=== PATIENT | female | born 1995 | race American Indian/Alaskan Native ===

== ENCOUNTER 2021-02-08 05:29 | Inpatient (IN) | payer MEDICAID ==
--- NOTE | 2021-02-06 14:37 | History and Physical Report ---
History of Present Illness Date of examination: 02/02/21 Chief complaint: Primary section due fourht degree laceration x2 for six pound infants at [place] and shoulder dystocia with her previous pregnancies History of present illness: Past History : 3 Term Births: 2 Premature Births: 0 Living Children: 2 Para: 2 Mult. Births: 0 Prev : 0 Prev. attempt? none Aborta: 0 Elect. Ab: 0 Spont. Ab: 0 Ectopics: 0 # 1 Delivery date: 2014 Weeks Gestation: 39 labor: no Delivery type: Anesthesia type: none Delivery location: [place] weight: 6lbs Comments: 4th degree # 2 Delivery date: 2018 Weeks Gestation: 39 labor: no Delivery type: Anesthesia type: none Delivery location: [place] Sex: Male weight: 6lbs Comments: shoulder dystocia and 4th degree Risk Factors: Smoked Tobacco Use: Never smoker Smokeless Tobacco Use: Never Passive smoke exposure: no Drug use: no HIV high-risk behavior: no Alcohol use: no Exercise: yes Times per week: 2 Type of Exercise: wallking Seatbelt use: 100 % Past Medical History: 4th degree x2, shoulder dystocia with last delivery Sickle cell trait Past Surgical History: Negative Past Surgical History Past Medical History 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 of genital herpes: no Partner hx. of genital herpes: no Rash, Viral, or Febrile illness since last LMP? no Varicella/Chicken Pox Status: Immunized Genetic History Congenital Heart Defect: Mom: no Dad: no Olga Disease: Mom: no Dad: no Thalassemia Mom: no Dad: no Neural Tube Defect Mom: no Dad: no Down's Syndrome Mom: no Dad: no Ventura-Sachs Mom: no Dad: no Sickle Cell Disease/Trait Mom: yes Dad: no Comments: pt is +SCT Hemophilia Mom: no Dad: no Muscular Dystrophy Mom: no Dad: no Cystic Fibrosis Mom: no Dad: no Macario Chorea Mom: no Dad: no Mental Retardation Mom: no Dad: no Fragile X Mom: no Dad: no Other Genetic/Chromosomal Disorder Mom: no Dad: no Child w/other defect Mom: no Dad: no Enviromental Exposures Xray Exposure: no Medication, drug, or alcohol use since LMP: no Chemical/Other Exposure: no Exposure to Cat Liter: no Hx of Parvovirus (Fifth Disease): no Occupational Exposure to Children: none Current Allergies (reviewed today): No known allergies Physical Exam Fundal Ht: 40 Size: AGA Position: vertex FHT: 130s Activity: + Initials: lr Physical Exam General appearance: well nourished, healthy appearing, no distress Chest/Lungs: respiratory effort normal, lungs clear to auscultation Cardiovascular: normal rate and rhythm Abdomen/GI: soft, nontender Cervix: Dilation (cm): 0 Effacement: 40% Station: -3 Position: posterior Consistency: soft Care Plan: Shoulder dystocia - delivered (ICD-660.41) (DWL11-S33.0) Impression & Recommendations: Problem # 1: Shoulder dystocia - delivered (ICD-660.41) (TWU67-G73.0) Orders: OB follow up (CPT-60445) Urine Chemstrip (CPT-24645) Options again reviewed with risk for repeat shoulder dystocia and 4th degree episiotomy/laceration and complications. C/S exlpianed and risks discussed, including but not limited to, possible bleeding, infection, injury to bowel, bladder, ureters or other adjacent organs. She was informend she may require c/s's for all subsequent pregnancies: The patient was instructed/informed the following: The normal length of hospital stay for this procedure. Nothing to eat or drink after midnight the evening prior to surgery. The usual discomforts associated with this procedure were detailed. Proper use of pain medicines was reviewed. Patient was given ample opportunity to have all her questions answered before signing informed consent. She voiced understanding and desires to proceed with delivery. he declines sterilization at this time. Questions encouraged and answered. Consents reviewed and sign. Problem # 2: Obstetric perineal laceration, 4th degre (ICD-664.30) (ICD10- O70.3) Past History - Obstetrical History Expected Date of Delivery: 02/10/21 Actual Gestation: 39 Week(s) 3 Day(s) Medications and Allergies Active Meds: Active Medications Citric Acid/Sodium Citrate (Bicitra Oral Liqd 30ml) 30 ml PO ONCE ONE Stop: 02/08/21 07:01 Famotidine (Famotidine 20 Mg/2 Ml Inj) 20 mg IV ONCE ONE Stop: 02/08/21 07:01 Lactated Ringer's (Lactated Ringers) 1,000 mls @ 2,250 mls/hr IV PREOP TOMMY Stop: 02/09/21 05:57 Oxytocin/Sodium Chloride (Pitocin/Ns 30 Unit/500ml) 30 units in 500 mls @ 0 mls/hr IV TITR TOMMY; Protocol Cefazolin Sodium (Ancef/Sterile Water 2 Gm/20 Ml) 2 gm in 20 mls @ 80 mls/hr IV PREOP NR; Protocol Metoclopramide HCl (Metoclopramide 10 Mg/2 Ml Inj) 10 mg IV ONCE ONE Stop: 02/08/21 07:01 Review of Systems All systems: negative Results All other labs normal. Assessment and Plan - Patient Problems (1) 39 weeks gestation of Status: Acute (2) History of fourth degree perineal laceration Status: Acute (3) Sickle cell trait Status: Chronic (4) History of shoulder dystocia in prior Status: Acute
[2021-02-08] MEDS ORDERED: OXYTOCIN DRIP 30 UNITS/500 ML BAG IV SCH ×2 (05:30→12:00)
[2021-02-08] MEDS: LACTATED RINGERS 1,000 ML IV SCH ×2 (06:10→07:05)
--- NOTE | 2021-02-08 06:15 | Anesthesia Day of Surgery ---
Anesthesia Day of Surgery - Day of Surgery Patient Examined: Yes Patient H&P Reviewed: Yes Patient is NPO: Yes Beta Blockers: No Cardiac Clearance: No Pulmonary Clearance: No Selvin's Test: N/A
--- NOTE | 2021-02-08 06:29 | Anesthesia Consultation ---
Anesthesia Consult and Med Hx Date of service: 02/08/21 - Airway Anesthetic Teeth Evaluation: Good ROM Head & Neck: Adequate Mental/Hyoid Distance: Adequate Mallampati Class: Class II Intubation Access Assessment: Good - Pulmonary Exam CTA: Yes - Cardiac Exam Cardiac Exam: RRR - Pre-Operative Health Status ASA Pre-Surgery Classification: ASA2 Proposed Anesthetic Plan: Spinal - Pulmonary Hx Smoking: No Hx Asthma: No Hx Respiratory Symptoms: No SOB: No COPD: No Home Oxygen Therapy: No Hx Pneumonia: No Hx Sleep Apnea: No - Cardiovascular System Hx Hypertension: No Hx Coronary Artery Disease: No Hx Heart Attack/AMI: No Hx Angina: No Hx Percutaneous Transluminal Coronary Angioplasty (PTCA): No Hx Cardia Arrhythmia: No Hx Pacemaker: No Hx Internal Defibrillator: No Hx Valvular Heart Disease: No Hx Heart Murmur: No - Central Nervous System Hx Neuromuscular Disorder: No Hx Seizures: No CVA: No Hx Back Pain: No Hx Psychiatric Problems: No - Gastrointestinal Hx Ulcer: No Hx Gastroesophageal Reflux Disease: Yes - Endocrine Hx Renal Disease: No Hx End Stage Renal Disease: No Hx Cirrhosis: No Hx Liver Disease: No Hx Insulin Dependent Diabetes: No Hx Non-Insulin Dependent Diabetes: No Hx Thyroid Disease: No Hx Hypothyroidism: No Hx Hyperthyroidism: No - Hematic Hx Anemia: No Hx Sickle Cell Disease: No - Other Systems Hx Alcohol Use: No Hx Substance Use: No Hx Cancer: No Hx Obesity: Yes
[2021-02-08 06:41] LABS: Hemoglobin 8.4 gm/dl (10.1-14.3); Mean Corpuscular HGB Conc 32 % (30-34); Platelet Count 203 K/mm3 (140-440); Red Blood Count 3.81 M/mm3 (3.65-5.03)
[2021-02-08 06:42] LABS: Mean Corpuscular Volume 68 fl (79-97); Red Cell Distribution Width 20.2 % (13.2-15.2)
[2021-02-08] MEDS ORDERED: NALOXONE 0.4 MG/1 ML INJ IV PRN ×2 (06:44→12:00)
[2021-02-08] MEDS ORDERED: HYDROmorphone 1 MG/1 ML INJ IV PRN (06:44)
[2021-02-08] MEDS ORDERED: ONDANSETRON 4 MG/2 ML INJ IV PRN (06:44)
[2021-02-08] MEDS ORDERED: BICITRA ORAL LIQD 30ML PO ONE (07:00)
[2021-02-08] MEDS ORDERED: ceFAZolin/Water 2 GM/20 ML 2 GM/20 ML SYRINGE IV NR (07:00)
[2021-02-08] MEDS ORDERED: METOCLOPRAMIDE 10 MG/2 ML INJ IV ONE (07:00)
[2021-02-08] MEDS ORDERED: FAMOTIDINE 20 MG/2 ML INJ IV ONE (07:00)
[2021-02-08] MEDS ORDERED: ONDANSETRON 4 MG/2 ML INJ ONE ×2 (07:39)
[2021-02-08] MEDS ORDERED: BUPIVACAINE/PF (0.5%) 5 MG/1 ML 30 ML VIAL INFILTRATI ONE (07:39)
[2021-02-08] MEDS ORDERED: dexAMETHasone 20 MG/5 ML VIAL ONE (07:39)
[2021-02-08] MEDS ORDERED: WATER FOR IRRIG STERILE 1,500 ML BOTTLE IR ONE (08:00)
[2021-02-08] MEDS ORDERED: ceFAZolin/STERILE WATER 2 GM/20 ML SYRINGE IV ONE (08:00)
[2021-02-08] MEDS ORDERED: SODIUM CHLORIDE 0.9% IRR 1,500 ML BOTTLE IR ONE (08:00)
[2021-02-08] MEDS ORDERED: PHENYLEPHRINE/NS 1,000 MCG/10 ML SYRINGE (OR USE) IV ONE (08:02)
[2021-02-08] MEDS ORDERED: KETOROLAC 30 MG/1 ML INJ ONE (08:27)
[2021-02-08] MEDS ORDERED: SODIUM CHLORIDE 0.9% 100 ML ONE (08:44)
--- NOTE | 2021-02-08 09:10 | Operative Report ---
Operative Report Operative Report: Date of operation: 02/08/2021 Pre-operative diagnosis: 1. 39 weeks gestational age 2. History of shoulder dystocia and fourth degree lacerations 3. Desires primary delivery 4. BMI 34.3 mg/m 5. Anemia Post-operative diagnosis: 1. 39 weeks gestational age 2. History of shoulder dystocia and fourth degree lacerations 3. Desires primary delivery 4. BMI 34.3 mg/m 5. Anemia Procedure name(s): Primary low transverse uterine incision Surgeon: Kavya Gao MD Non [employer]fit Job Titles: Ashely Montano CST Anesthesia: Combined spinal epidural EBL: 900 mL Urine output: 150 mL of clear urine out at the end of the procedure Fluids: 1300 mL Findings: Liveborn male weight 8 Lbs. 8.6 oz. Apgars of 8 and 9 at one and 5 minutes Indications: Pregnancies complicated by fourth degree laceration while delivering a 6 pound infant followed by shoulder dystocia and another fourth degree laceration again delivery of a 6 pound infant. Procedure: Patient was taking to the operating room. Spinal epidural anesthesia was placed. Patient was then prepped and draped in the usual sterile fashion Timeout was performed. Once an appropriate level of anesthesia was noted, a Pfannenstiel incision was made and extended the fascia which was incised and extended lateral direction. The overlying fascia was sharply dissected away from the underlying rectus muscles in the superior inferior direction. The midline was entered bluntly. Bladder blade was placed. Vesicouterine fold was incised with blunt dissection bladder flap was created. A transverse incision was made in the lower uterine segment and extended superolateral direction with finger fractionation. [] fluid was noted. was delivered from the [] position, with spontaneous cry and excellent tone. Mouth and nose bulb suctioned. Cord was doubly clamped and cut infant was given to the resuscitation team present. Placenta was delivered. The uterus was exteriorized and cleaned of any further placental tissue and products of conception. Uterine incision was approximated using 0 Vicryl in a running interlocking stitch followed by further suture of 0 Vicryl in imbricating fashion. When hemostasis was noted the uterus was allowed back in the pelvic cavity. Pelvis was irrigated with warm normal saline. Surgicel was placed to ensure hemostasis. Once hemostasis was noted the rectus muscles were approximated using 0 Vicryl interrupted simple stitches 3. Once hemostasis was noted the fascia was approximated using 0 Vicryl simple running stitch. The incision was irrigated with warm saline, once hemostasis as noted, the subcuticular adipose tissue was reapproximated using 3-0 Vicryl in a simple running fashion. Skin was approximated using 4-0 Vicryl on a Chidi needle in a subcuticular manner. Counts were correct x3. Patient tolerated the procedure well, she was taken to recovery room in stable condition.
--- NOTE | 2021-02-08 10:53 | Progress Note ---
Spinal Anesthesia Block - Spinal Anesthesia Block Start Time: 07:50 Stop Time: 07:56 Performed by:: ROSEANNE FISHMAN Procedure: Patient IDed, H&P reviewed, all questions and concerns were answered, and consent was signed. Timeout was performed at bedside. Patient in sitting position. Sterile prep and drape was performed. [3] ml of 1% lidocaine skin wheal at L[3]- L [4]. Needle introducer advanced. 25 gauge spinal needle advanced. Clear, free flowing CSF. negative blood, negative paresthesia. Spinal dose given. All needles removed. Patient tolerated procedure.
--- NOTE | 2021-02-08 10:55 | Progress Note ---
Objective - Constitutional Vitals: Vital Signs - 12hr 02/08/21 02/08/21 02/08/21 05:51 05:56 06:01 Temperature Pulse Rate 85 100 H 87 Respiratory Rate Blood Pressure 136/73 O2 Sat by Pulse 100 100 99 Oximetry 02/08/21 02/08/21 02/08/21 06:06 06:11 06:16 Temperature Pulse Rate 95 H 80 88 Respiratory Rate Blood Pressure O2 Sat by Pulse 100 100 100 Oximetry 02/08/21 02/08/21 02/08/21 06:21 06:26 06:31 Temperature Pulse Rate 79 104 H 95 H Respiratory Rate Blood Pressure O2 Sat by Pulse 100 100 100 Oximetry 02/08/21 02/08/21 02/08/21 06:34 06:48 06:53 Temperature Pulse Rate 132 H 94 H 84 Respiratory Rate Blood Pressure O2 Sat by Pulse 84 100 100 Oximetry 02/08/21 02/08/21 02/08/21 06:58 07:03 07:08 Temperature Pulse Rate 93 H 76 82 Respiratory Rate Blood Pressure O2 Sat by Pulse 100 100 100 Oximetry 02/08/21 02/08/21 02/08/21 07:13 07:18 07:23 Temperature Pulse Rate 76 104 H 82 Respiratory Rate Blood Pressure O2 Sat by Pulse 100 100 100 Oximetry 02/08/21 02/08/21 02/08/21 07:28 07:33 09:08 Temperature 97.5 F L Pulse Rate 68 86 90 Respiratory 13 Rate Blood Pressure 79/47 O2 Sat by Pulse 100 100 96 Oximetry 02/08/21 02/08/21 02/08/21 09:18 09:21 09:26 Temperature Pulse Rate 81 64 59 L Respiratory 17 20 17 Rate Blood Pressure 104/53 106/54 120/72 O2 Sat by Pulse 100 100 100 Oximetry 02/08/21 02/08/21 02/08/21 09:40 09:55 10:05 Temperature 97.6 F Pulse Rate 58 L 66 58 L Respiratory 17 17 17 Rate Blood Pressure 126/81 119/78 114/74 O2 Sat by Pulse 100 100 100 Oximetry - Labs CBC & Chem 7: 02/08/21 06:18 Labs: Abnormal lab results 02/08/21 Range/Units 06:18 Hgb 8.4 L (10.1-14.3) gm/dl Hct 26.0 L (30.3-42.9) % MCV 68 L (79-97) fl MCH 22 L (28-32) pg RDW 20.2 H (13.2-15.2) % Regional Anesthesia Block - Regional Anesthesia Block Start Time: 09:14 Stop Time: :18 Performed By:: ROSEANNE FISHMAN Procedure: Patient consented for TAP block for post surgical pain management. Patient identified, monitors placed, and time out performed. TAP identified bilaterally via ultrasound. Skin prepped bilaterally with [chlorhexidine] and [22g stimuplex] needle advanced to the TAP. [Marcaine 0.22% 35ml] injected under ultrasound guidance on the [left] side. [Marcaine 0.22% 35ml] injected under ultrasound guidance on the [right] side. Negative aspiration every 5mL, No change in heart rate or rhythm. Patient tolerated the procedure well. No apparen t complications seen.
[2021-02-08 11:59] LABS: Hemoglobin 7.4 gm/dl (10.1-14.3)
[2021-02-08] MEDS: PRENATAL VIT27-FE FUMARATE-FOLIC ACID VIT TAB PO SCH (12:00)
[2021-02-08] MEDS ORDERED: PROMETHAZINE 25 MG RECT SUPP PR PRN (12:00)
[2021-02-08] MEDS ORDERED: WITCH HAZEL/ GLYCERIN PAD TP PRN (12:00)
[2021-02-08] MEDS ORDERED: SIMETHICONE 80 MG CHEW TAB PO PRN (12:00)
[2021-02-08] MEDS ORDERED: MORPHINE 2 MG/1 ML INJ IV PRN (12:00)
[2021-02-08] MEDS ORDERED: ACETAMINOPHEN 325 MG TAB PO SCH (12:00)
[2021-02-08] MEDS ORDERED: LANOLIN/ZINC/DIMETHICONE (LANSINOH) 7 GM TP PRN (12:00)
[2021-02-08] MEDS ORDERED: HYDROcodone/ACETAMINOPHEN 5-325 MG TAB PO PRN (12:00)
[2021-02-08] MEDS ORDERED: MORPHINE 4 MG/1 ML INJ IV PRN (12:00)
[2021-02-08] MEDS: FERROUS SULFATE 325 MG TAB PO SCH ×2 (12:16→21:03)
[2021-02-08] MEDS: ACETAMINOPHEN 500 MG TAB PO SCH ×3 (12:16→23:35)
[2021-02-08] MEDS: D5W/LACTATED RINGERS 1,000 ML IV SCH ×2 (12:17→21:02)
[2021-02-08] MEDS: KETOROLAC 30 MG/1 ML INJ IV SCH ×2 (14:35→21:02)
[2021-02-08] MEDS: ceFAZolin/NS 1 GM/50 ML 1 GM/50 ML BAG IV SCH ×2 (14:35→23:34)
[2021-02-08 20:41] LABS: Hematocrit 22.7 % (30.3-42.9); Hemoglobin 7.2 gm/dl (10.1-14.3)
[2021-02-08] MEDS ORDERED: MAGNESIUM HYDROXIDE (MOM) ORAL LIQD UDC PO PRN (22:00)
[2021-02-09] MEDS: KETOROLAC 30 MG/1 ML INJ IV SCH ×2 (02:32→08:30)
[2021-02-09] MEDS ORDERED: IBUPROFEN 800 MG TAB PO PRN (07:00)
[2021-02-09] MEDS ORDERED: TETANUS,DIPH,PERTUSS(ACELL) VACCINE 0.5 ML SYRINGE IM ONE (08:00)
--- NOTE | 2021-02-09 08:12 | Progress Note ---
Assessment and Plan Pt OOB, dressed in own clothing after AM care. postop H&H 7.2/22.7, VSSAF, lochia scant, fundus firm. - Patient Problems (1) delivery delivered Current Visit: Yes Status: Acute Plan to address problem: Continue postop pathway Anticipate d/c home tomorrow. (2) Anemia due to blood loss, acute Current Visit: Yes Status: Acute Plan to address problem: Asymptomatic FE supplementation Subjective - Subjective Date of service: 02/09/21 Principal diagnosis: postop day #1 s/p c/s; anemia d/t acute blood loss Patient reports: appetite normal, voiding normally, pain well controlled, flatus, ambulating normally, no dizzy ambulation, no nauseated [place]: doing well, nursing well (breast and bottle feeding) Objective - Vital Signs Latest vital signs: Vital Signs Temp Pulse Resp BP BP Pulse Ox 02/09/21 01:45 98.3 F 71 16 134/82 99 02/08/21 20:05 98.0 F 67 18 129/82 100 02/08/21 16:00 97.8 F 62 18 121/72 100 02/08/21 10:45 97.7 F 58 L 18 114/70 100 02/08/21 10:05 97.6 F 58 L 17 114/74 100 02/08/21 09:55 66 17 119/78 100 02/08/21 09:40 58 L 17 126/81 100 02/08/21 09:26 59 L 17 120/72 100 02/08/21 09:21 64 20 106/54 100 02/08/21 09:18 81 17 104/53 100 02/08/21 09:08 97.5 F L 90 13 79/47 96 Intake and Output 02/08/21 02/09/21 02/09/21 23:59 07:59 15:59 Intake Total 1300 600 Output Total 2100 1600 Balance -800 -1000 Intake: IV 1000 D5lr 1,000 ml @ 125 mls/ 1000 hr IV DIRECT TOMMY Rx#: [id number] Intake, Free Water 300 600 Output: Urine 2100 1600 Indwelling Catheter 1500 Void 600 1600 Other: Total, Output Amount 600 400 # Voids Indwelling Catheter 1 Void 1 1 - Exam Breasts: Present: normal, Cardiovascular: Present: Regular rate Lungs: Present: Clear to auscultation, Normal air movement Abdomen: Present: normal appearance, soft Vulva: both: normal Uterus: Present: normal, firm, fundal height at umbilicus Extremities: Present: normal Deep Tendon Reflex Grade: Normal +2 Incision: Present: normal, dry, intact - Labs Labs: Abnormal lab results 02/08/21 02/08/21 Range/Units 10:48 20:13 Hgb 7.4 L 7.2 L (10.1-14.3) gm/dl Hct 23.0 L 22.7 L (30.3-42.9) %
[2021-02-09] MEDS: FERROUS SULFATE 325 MG TAB PO SCH ×2 (09:38→22:19)
[2021-02-09] MEDS: PRENATAL VIT27-FE FUMARATE-FOLIC ACID VIT TAB PO SCH (09:38)
[2021-02-09] MEDS: oxyCODONE /ACETAMINOPHEN 5-325MG TAB PO PRN (18:43)
--- NOTE | 2021-02-09 21:08 | Post Anesthesia Evaluation ---
- Post Anesthesia Evaluation Patient Participated: Yes Airway Patent: Yes Stable Respiratory Function: Yes Nausea/Vomiting: No Temp > 96.8F: Yes Pain Manageable: Yes Adequeate Hydration: Yes Anesthesia Complications: No Block Receding Appropriately: Yes Patient on Ventilator: No
[2021-02-10] MEDS: oxyCODONE /ACETAMINOPHEN 5-325MG TAB PO PRN (02:32)
--- NOTE | 2021-02-10 09:14 | Discharge Summary ---
Providers - Providers Date of Admission: 02/08/21 05:29 Date of discharge: 02/10/21 (pt requests discharge home today) Attending physician: XIANG VELÁSQUEZ 02/08/21 11:19 Consult to Lace Roller [CONS] Routine Reason For Exam: Primary care physician: XIANG VELÁSQUEZ Hospitalization Reason for admission: section Delivery: Procedure: section, primary low transverse Incision: normal (Pt passing flatus, ambulating without difficulty, bottlefeedi ng, and without complaints this am. She reports she does not desire control PP.), dry, intact Other procedures: none complications: none Discharge diagnosis: IUP at term delivered baby: male Condition at discharge: Good Disposition: DC-01 TO HOME OR SELFCARE Plan - Discharge Medications Prescriptions: Docusate Sodium [Colace] 100 mg PO BID PRN #30 capsule PRN Reason: Constipation Lidocain2.5%/Prilocai2.5% [Emla] 5 gm TP ONCE #1 tube Ferrous Sulfate [Feosol 325 MG tab] 325 mg PO BID #90 tablet Ibuprofen [Motrin 800 MG tab] 800 mg PO TID PRN #30 tablet PRN Reason: Pain oxyCODONE /ACETAMINOPHEN [Percocet 5/325 mg] 1 - 2 tab PO Q6HR PRN #14 tablet PRN Reason: Pain - Provider Discharge Summary Activity: routine, no sex for 6 weeks, no heavy lifting 4 weeks, no strenuous exercise Diet: routine Instructions: routine Additional instructions: [] Smoking cessation referral if applicable(refer to patient education folder for contact #) [] Refer to [facility]'s [facility] Booklet Call your doctor immediately for: * Fever > 100.5 * Heavy vaginal bleeding ( >1 pad per hour) * Severe persistent headache * Shortness of breath * Reddened, hot, painful area to leg or breast * Drainage or odor from incision. * Keep incision clean and dry at all times and follow doctor's instructions regarding bathing/showering Congratulations! Please call [phone] to make an appointment for you and baby to be seen in our office in 1 week. Please orange picking supervisor your prescriptions and bring them to your appointment. Do not administer baby's prescription. - Follow up plan Follow up: XIANG VELÁSQUEZ MD [Primary Care Provider] - 7 Days
[2021-02-10] MEDS: PRENATAL VIT27-FE FUMARATE-FOLIC ACID VIT TAB PO SCH (10:12)
[2021-02-10] MEDS: FERROUS SULFATE 325 MG TAB PO SCH (10:12)
[2021-02-10 13:51] VITALS: BP 138/84
== END 2021-02-10 13:52 | disposition home or self-care (01) | DRG 765 ==
LOC: APU 05:29 → OB 10:39
PROVIDERS: ADMIT Obstetrics & Gynecology; ATTEND Obstetrics & Gynecology
PROC: 10D00Z1 Extraction of Products of Conception, Low, Open Approach (ICD-10-PCS; principal; 2021-02-08)
PROC: 3E0T3BZ Introduction of Anesthetic Agent into Peripheral Nerves and Plexi, Percutaneous Approach (ICD-10-PCS; 2021-02-08)
PROC: 3E0234Z Introduction of Serum, Toxoid and Vaccine into Muscle, Percutaneous Approach (ICD-10-PCS; 2021-02-09)
DX: O99.02 Anemia complicating childbirth (principal); D62 Acute posthemorrhagic anemia; Z3A.39 39 weeks gestation of pregnancy; Z37.0 Single live birth; D57.3 Sickle-cell trait; Z20.822 Contact with and (suspected) exposure to COVID-19; Z23 Encounter for immunization; O99.214 Obesity complicating childbirth; E66.9 Obesity, unspecified; O99.62 Diseases of the digestive system complicating childbirth; K21.9 Gastro-esophageal reflux disease without esophagitis; Z87.59 Personal history of other complications of pregnancy, childbirth and the puerperium
CPT/HCPCS: 36415; 85014; 85018; 85027; 86592; 86850; 86900; 86901; 99211; G0378; G0463; J0690; J1100; J1885; J2370; J2405; J2765; J3490; J7120; J7121; U0003

== ENCOUNTER 2021-03-04 22:30 | Emergency (ER) | payer MEDICAID | END 2021-03-05 01:03 | disposition left against medical advice (07) | LOC: ED 22:30 | DX: M25.532 Pain in left wrist (principal); Z53.21 Procedure and treatment not carried out due to patient leaving prior to being seen by health care provider ==